=== PATIENT | male | born 1950 | race Caucasian/White ===

== ENCOUNTER 2023-04-15 08:56 | Outpatient (CLI) | payer MEDICARE ==
[2023-04-15] MEDS ORDERED: Iopamidol 370 76% 100 ML VIAL ONE (11:05)
== END 2023-04-15 08:57 | disposition home or self-care (01) ==
LOC: CT 08:56
PROVIDERS: ATTEND Internal Medicine Hematology & Oncology
DX: C82.90 Follicular lymphoma, unspecified, unspecified site (principal); N20.0 Calculus of kidney; R93.422 Abnormal radiologic findings on diagnostic imaging of left kidney
CPT/HCPCS: 71260; 74177; 82565; Q9967

== ENCOUNTER 2024-05-20 09:25 | Outpatient (CLI) | payer MEDICARE ==
[2024-05-20] MEDS ORDERED: Iopamidol 370 76% 100 ML VIAL ONE (11:29)
== END 2024-05-20 09:26 | disposition home or self-care (01) ==
LOC: BICCT 09:25
PROVIDERS: ATTEND Internal Medicine Hematology & Oncology
DX: C85.80 Other specified types of non-Hodgkin lymphoma, unspecified site (principal)
CPT/HCPCS: 71260; 74177; Q9967